=== PATIENT | male | born 1990 | race Caucasian/White ===

== ENCOUNTER 2016-10-19 23:08 | Emergency (ER) | payer OTHER ==
[2016-10-19] MEDS ORDERED: NORCO, ANEXSIA 5/325MG TABLET (HYDROcodone/ACETAMINOPHEN) As Ordered ONE (23:44)
[2016-10-19] MEDS ORDERED: AUGMENTIN 875 MG TAB As Ordered ONE (23:44)
--- NOTE | 2016-10-20 00:11 | EDDOCDS ---
Nurse's Notes [facility] Name: Filemon Lebron Age: 26 yrs Sex: Male : 1990 Arrival Date: 10/19/2016 Time: 23:08 Bed TR7 Private MD: Other - Complete Info On Cds Diagnosis: Dental caries-dental pain Presentation: 10/19 23:27 Presenting complaint: Patient states: Tooth and gum pain for last 2 nights--has taken mcp percocet and naproxen for pain and isn't working. Adult Sepsis Screening: The patient does not have new or worsening altered mentation. Patient's respiratory rate is less than 22. Systolic blood pressure is greater than 100. Patient has a qSOFA score of 0- Negative Sepsis Screen. Suicide/Homicide risk assessment- the patient denies having any suicidal and/or homicidal ideations and does not present with any other emotional, behavioral or mental health complaints. Status: The patient is an active duty swimming pool serviceperson. Transition of care: patient was not received from another setting of care. 23:27 Acuity: RIDDHI Level 4 [facility] 23:27 Method Of Arrival: Walkin/Carried/Asstd [facility] Triage Assessment: 23:29 General: Appears uncomfortable, Behavior is cooperative. Pain: Location: mouth Pain mcp currently is 10 out of 10 on a pain scale. HIV screening NA for this visit Offered previously. Neurological: No deficits noted. Respiratory: Airway is patent Respiratory effort is even, unlabored. Derm: Skin is pink, warm & dry. Historical: - Allergies: no known allergies; - Home Meds: 1. Percocet 5-325 mg Oral tab 1 tab every 6 hours (Last dose: 10/19/2016 21:30) 2. naproxen 500 mg Oral tab 1 tab every 12 hours (Last dose: 10/19/2016 21:30) - PMHx: none; - PSHx: left knee surgery; - Social history: Smoking status: Patient states was never smoker of tobacco. No barriers to communication noted, The patient speaks fluent Serbian. - Family history: Not pertinent. - : The pt / caregiver states he / she is not on anticoagulants. Home medication list is obtained from the patient. - Exposure Risk Screening:: None identified. Screenin/18 00:09 Screening information is obtained from the patient. Fall risk: No risks identified. cz Assistance ADL's: requires no assistance with activities of daily living. Abuse/DV Screen: The patient / caregiver reports he/she is: not in a situation that causes fear, pain or injury. Nutritional screening: No deficits noted. home support is adequate. Assessment: 00:09 General: Appears alert male with stated dental pain. cz Vital Signs: 10/19 23:10 BP 142 / 94; Pulse 71; Resp 18 S; Temp 97.1(O); Pulse Ox 100% on R/A; Weight 84.37 kg gr2 (R); Height 72 in. (182.88 cm) (R); Pain 10/10; 23:10 Body Mass Index 25.23 (84.37 kg, 182.88 cm) gr2 Vitals: 23:10 Log In Time: October 19, 2016 at 23:10. gr2 ED Course: 23:09 Patient visited by Zhanna Hahn. gr2 23:09 Patient moved to Waiting gr2 23:10 Other - Complete Info On Cds is Private Physician. gr2 23:12 Patient visited by Zhanna Hahn. gr2 23:12 Patient moved to Pre RCE gr2 23:28 Triage Initiated [facility] 23:30 Patient visited by Claudette Tinsley RN. [facility] 23:30 [facility] ar[facility] 23:30 Natalio Cabral DO is Attending Physician. ar2 23:30 Patient visited by Reese So PA-C. ar2 23:30 Patient moved to Triage 1 [facility] 23:42 [facility] is Referral Physician. ar2 10/20 00:06 Patient moved to [facility] cz 00:09 The patient / caregiver is instructed regarding the plan of care and ED course. cz 00:09 No IV's were initiated during this patient's visit. No procedures done that require cz assistance. Administered Medications: 10/19 23:45 Drug: Amoxicillin-Clavulanate 1 tabs [amoxicillin 875 mg-potassium clavulanate 125 mg mcp tablet (1 tabs)] Route: PO; 23:45 Drug: HYDROcodone-acetaminophen 1 tabs [hydrocodone 5 mg-acetaminophen 325 mg tablet (1 mcp tabs)] Route: PO; Order Results: There are currently no results for this order. Outcome: 23:43 Discharge ordered by Provider. ar2 10/20 00:09 Discharge Assessment: Patient awake, alert and oriented x 3. No cognitive and/or cz functional deficits noted. Patient verbalized understanding of disposition instructions. patient administered narcotics - no. The following High Risk Discharge criteria are identified: None. Discharged to home ambulatory. Condition: stable. Discharge instructions given to patient, Instructed on discharge instructions, follow up and referral plans. medication usage, Demonstrated understanding of instructions, medications, Pt was receptive of discharge instructions/ teaching. Prescriptions given X 1. No special radiology studies were completed. Property :Personal belongings accompany Pt. 00:10 Patient left the ED. cz Signatures: Claudette Tinsley, RN RN Raj Glaser RN RN Reese Christiansen, SHANELLE TIMMONS ar2 Zhanna Hahn gr2 FIOR
--- NOTE | 2016-10-20 00:11 | EDDOCDS ---
Physician Documentation [facility] Name: Filemon Lebron Age: 26 yrs Sex: Male : 1990 Arrival Date: 10/19/2016 Time: 23:08 Bed TR7 Private MD: Other - Complete Info On Cds Disposition: 10/19/16 23:43 Discharged to Home/Self Care. Impression: Dental caries - dental pain. - Condition is Stable. - Discharge Instructions: Dental Pain. - Prescriptions for Augmentin 875- 125 mg Oral Tablet - take 1 tablet by ORAL route every 12 hours for 10 days; 19 tablet. - Medication Reconciliation, Local Pharmacy Hours form. - Follow up: Vasu Reynoso [facility]; When: 2 - 3 days; Reason: Recheck today's complaints, Continuance of care. Follow up: Emergency Department; Reason: Fever > 102F, Trouble breathing, Worsening of conditions. - Problem is new. - Symptoms are unchanged. Historical: - Allergies: no known allergies; - Home Meds: 1. Percocet 5-325 mg Oral tab 1 tab every 6 hours (Last dose: 10/19/2016 21:30) 2. naproxen 500 mg Oral tab 1 tab every 12 hours (Last dose: 10/19/2016 21:30) - PMHx: none; - PSHx: left knee surgery; - Social history: Smoking status: Patient states was never smoker of tobacco. No barriers to communication noted, The patient speaks fluent Azeri. - Family history: Not pertinent. - : The pt / caregiver states he / she is not on anticoagulants. Home medication list is obtained from the patient. - Exposure Risk Screening:: None identified. Vital Signs: 10/19 23:10 BP 142 / 94; Pulse 71; Resp 18 S; Temp 97.1(O); Pulse Ox 100% on R/A; Weight 84.37 kg / gr2 186 lbs (R); Height 72 in. (182.88 cm) (R); Pain 10/10; 23:10 Body Mass Index 25.23 (84.37 kg, 182.88 cm) gr2 MDM: 23:42 Amoxicillin-Clavulanate 875 mg 1 tabs PO once ordered. ar2 23:42 HYDROcodone-acetaminophen 5 mg-325 mg 1 tabs PO once ordered. ar2 23:49 Financial registration complete. hs2 Administered Medications: 23:45 Drug: Amoxicillin-Clavulanate 1 tabs [amoxicillin 875 mg-potassium clavulanate 125 mg mcp tablet (1 tabs)] Route: PO; 23:45 Drug: HYDROcodone-acetaminophen 1 tabs [hydrocodone 5 mg-acetaminophen 325 mg tablet (1 mcp tabs)] Route: PO; Signatures: Claudette Tinsley RN RN mcp Raj Fisher RN RN cz Robertshaw, Aaron, PA-C PAIsiah ar2 Kamini Delgado, Reg Reg hs2 MTDD
--- NOTE | 2016-10-22 01:11 | EDDOCDS ---
Physician Documentation [facility] Name: Filemon Lebron Age: 26 yrs Sex: Male : 1990 Arrival Date: 10/19/2016 Time: 23:08 Bed TR7 Private MD: Other - Complete Info On Cds Disposition: 10/19/16 23:43 Discharged to Home/Self Care. Impression: Dental caries - dental pain. - Condition is Stable. - Discharge Instructions: Dental Pain. - Prescriptions for Augmentin 875- 125 mg Oral Tablet - take 1 tablet by ORAL route every 12 hours for 10 days; 19 tablet. - Medication Reconciliation, Local Pharmacy Hours form. - Follow up: Vasu Reynoso [facility]; When: 2 - 3 days; Reason: Recheck today's complaints, Continuance of care. Follow up: Emergency Department; Reason: Fever > 102F, Trouble breathing, Worsening of conditions. - Problem is new. - Symptoms are unchanged. Historical: - Allergies: no known allergies; - Home Meds: 1. Percocet 5-325 mg Oral tab 1 tab every 6 hours (Last dose: 10/19/2016 21:30) 2. naproxen 500 mg Oral tab 1 tab every 12 hours (Last dose: 10/19/2016 21:30) - PMHx: none; - PSHx: left knee surgery; - Social history: Smoking status: Patient states was never smoker of tobacco. No barriers to communication noted, The patient speaks fluent Mongolian. - Family history: Not pertinent. - : The pt / caregiver states he / she is not on anticoagulants. Home medication list is obtained from the patient. - Exposure Risk Screening:: None identified. Vital Signs: 10/19 23:10 BP 142 / 94; Pulse 71; Resp 18 S; Temp 97.1(O); Pulse Ox 100% on R/A; Weight 84.37 kg / gr2 186 lbs (R); Height 72 in. (182.88 cm) (R); Pain 10/10; 23:10 Body Mass Index 25.23 (84.37 kg, 182.88 cm) gr2 MDM: 23:42 Amoxicillin-Clavulanate 875 mg 1 tabs PO once ordered. ar2 23:42 HYDROcodone-acetaminophen 5 mg-325 mg 1 tabs PO once ordered. ar2 23:49 Financial registration complete. hs2 10/20 01:41 [facility] Payment Agreement was scanned into [employer] and attached to record. hs2 11:08 T-Sheet-- Draft Copy was scanned into [employer] and attached to record. gb Administered Medications: 10/19 23:45 Drug: Amoxicillin-Clavulanate 1 tabs [amoxicillin 875 mg-potassium clavulanate 125 mg mcp tablet (1 tabs)] Route: PO; 23:45 Drug: HYDROcodone-acetaminophen 1 tabs [hydrocodone 5 mg-acetaminophen 325 mg tablet (1 mcp tabs)] Route: PO; Signatures: Claudette Tinsley RN RN mcp Raj Fisher RN RN cz Jailene Sanchez, Reg Reg gb Reese So PA-C PA-C ar2 Kamini Delgado, Reg Reg hs2 The chart was reviewed and I authenticate all verbal orders and agree with the evaluation and treatment provided.Attachments: 10/20 01:41 [facility] Payment Agreement hs2 11:08 T-Sheet-- Draft Copy gb Chart Complete MTDD
--- NOTE | 2016-10-22 01:11 | EDDOCDS ---
Nurse's Notes [facility] Name: Filemon Lebron Age: 26 yrs Sex: Male : 1990 Arrival Date: 10/19/2016 Time: 23:08 Bed TR7 Private MD: Other - Complete Info On Cds Diagnosis: Dental caries-dental pain Presentation: 10/19 23:27 Presenting complaint: Patient states: Tooth and gum pain for last 2 nights--has taken mcp percocet and naproxen for pain and isn't working. Adult Sepsis Screening: The patient does not have new or worsening altered mentation. Patient's respiratory rate is less than 22. Systolic blood pressure is greater than 100. Patient has a qSOFA score of 0- Negative Sepsis Screen. Suicide/Homicide risk assessment- the patient denies having any suicidal and/or homicidal ideations and does not present with any other emotional, behavioral or mental health complaints. Status: The patient is an active duty caseworker protective services. Transition of care: patient was not received from another setting of care. 23:27 Acuity: RIDDHI Level 4 [facility] 23:27 Method Of Arrival: Walkin/Carried/Asstd [facility] Triage Assessment: 23:29 General: Appears uncomfortable, Behavior is cooperative. Pain: Location: mouth Pain mcp currently is 10 out of 10 on a pain scale. HIV screening NA for this visit Offered previously. Neurological: No deficits noted. Respiratory: Airway is patent Respiratory effort is even, unlabored. Derm: Skin is pink, warm & dry. Historical: - Allergies: no known allergies; - Home Meds: 1. Percocet 5-325 mg Oral tab 1 tab every 6 hours (Last dose: 10/19/2016 21:30) 2. naproxen 500 mg Oral tab 1 tab every 12 hours (Last dose: 10/19/2016 21:30) - PMHx: none; - PSHx: left knee surgery; - Social history: Smoking status: Patient states was never smoker of tobacco. No barriers to communication noted, The patient speaks fluent Tamazight. - Family history: Not pertinent. - : The pt / caregiver states he / she is not on anticoagulants. Home medication list is obtained from the patient. - Exposure Risk Screening:: None identified. Screenin/18 00:09 Screening information is obtained from the patient. Fall risk: No risks identified. cz Assistance ADL's: requires no assistance with activities of daily living. Abuse/DV Screen: The patient / caregiver reports he/she is: not in a situation that causes fear, pain or injury. Nutritional screening: No deficits noted. home support is adequate. Assessment: 00:09 General: Appears alert male with stated dental pain. cz Vital Signs: 10/19 23:10 BP 142 / 94; Pulse 71; Resp 18 S; Temp 97.1(O); Pulse Ox 100% on R/A; Weight 84.37 kg gr2 (R); Height 72 in. (182.88 cm) (R); Pain 10/10; 23:10 Body Mass Index 25.23 (84.37 kg, 182.88 cm) gr2 Vitals: 23:10 Log In Time: October 19, 2016 at 23:10. gr2 ED Course: 23:09 Patient visited by Zhanna Hahn. gr2 23:09 Patient moved to Waiting gr2 23:10 Other - Complete Info On Cds is Private Physician. gr2 23:12 Patient visited by Zhanna Hahn. gr2 23:12 Patient moved to Pre RCE gr2 23:28 Triage Initiated [facility] 23:30 Patient visited by Claudette Tinsley RN. [facility] 23:30 [facility]. ar2 23:30 Natalio Cabral DO is Attending Physician. ar2 23:30 Patient visited by Reese So PA-C. ar2 23:30 Patient moved to Triage 1 [facility] 23:42 [facility] is Referral Physician. ar2 10/20 00:06 Patient moved to [facility] cz 00:09 The patient / caregiver is instructed regarding the plan of care and ED course. cz 00:09 No IV's were initiated during this patient's visit. No procedures done that require cz assistance. 01:41 [facility] Payment Agreement was scanned into [employer] and attached to record. hs2 01:46 Patient name changed from Filemon\S\\S\Riholm\S\ to Filemon\S\ \S\Riholm. EDMS 11:08 T-Sheet-- Draft Copy was scanned into [employer] and attached to record. gb Administered Medications: 10/19 23:45 Drug: Amoxicillin-Clavulanate 1 tabs [amoxicillin 875 mg-potassium clavulanate 125 mg mcp tablet (1 tabs)] Route: PO; 23:45 Drug: HYDROcodone-acetaminophen 1 tabs [hydrocodone 5 mg-acetaminophen 325 mg tablet (1 mcp tabs)] Route: PO; Order Results: There are currently no results for this order. Outcome: 23:43 Discharge ordered by Provider. ar2 10/20 00:09 Discharge Assessment: Patient awake, alert and oriented x 3. No cognitive and/or cz functional deficits noted. Patient verbalized understanding of disposition instructions. patient administered narcotics - no. The following High Risk Discharge criteria are identified: None. Discharged to home ambulatory. Condition: stable. Discharge instructions given to patient, Instructed on discharge instructions, follow up and referral plans. medication usage, Demonstrated understanding of instructions, medications, Pt was receptive of discharge instructions/ teaching. Prescriptions given X 1. No special radiology studies were completed. Property :Personal belongings accompany Pt. 00:10 Patient left the ED. cz Signatures: Dispatcher [employer] EDClaudette Rollins RN RN mcp Zecher, Calvin, RN RN cz Jailene Sanchez, Reg Reg gb Reese So PA-C PA-C ar2 Zhanna Hahn gr2 Kamini Delgado, Reg Reg hs2 Chart Complete MTDD
--- NOTE | 2016-10-22 01:11 | EDDOCDS ---
Physician Documentation [facility] Name: Filemon Lebron Age: 26 yrs Sex: Male : 1990 Arrival Date: 10/19/2016 Time: 23:08 Bed TR7 Private MD: Other - Complete Info On Cds Disposition: 10/19/16 23:43 Discharged to Home/Self Care. Impression: Dental caries - dental pain. - Condition is Stable. - Discharge Instructions: Dental Pain. - Prescriptions for Augmentin 875- 125 mg Oral Tablet - take 1 tablet by ORAL route every 12 hours for 10 days; 19 tablet. - Medication Reconciliation, Local Pharmacy Hours form. - Follow up: Vasu Reynoso [facility]; When: 2 - 3 days; Reason: Recheck today's complaints, Continuance of care. Follow up: Emergency Department; Reason: Fever > 102F, Trouble breathing, Worsening of conditions. - Problem is new. - Symptoms are unchanged. Historical: - Allergies: no known allergies; - Home Meds: 1. Percocet 5-325 mg Oral tab 1 tab every 6 hours (Last dose: 10/19/2016 21:30) 2. naproxen 500 mg Oral tab 1 tab every 12 hours (Last dose: 10/19/2016 21:30) - PMHx: none; - PSHx: left knee surgery; - Social history: Smoking status: Patient states was never smoker of tobacco. No barriers to communication noted, The patient speaks fluent Tamazight. - Family history: Not pertinent. - : The pt / caregiver states he / she is not on anticoagulants. Home medication list is obtained from the patient. - Exposure Risk Screening:: None identified. Vital Signs: 10/19 23:10 BP 142 / 94; Pulse 71; Resp 18 S; Temp 97.1(O); Pulse Ox 100% on R/A; Weight 84.37 kg / gr2 186 lbs (R); Height 72 in. (182.88 cm) (R); Pain 10/10; 23:10 Body Mass Index 25.23 (84.37 kg, 182.88 cm) gr2 MDM: 23:42 Amoxicillin-Clavulanate 875 mg 1 tabs PO once ordered. ar2 23:42 HYDROcodone-acetaminophen 5 mg-325 mg 1 tabs PO once ordered. ar2 23:49 Financial registration complete. hs2 10/20 01:41 [facility] Payment Agreement was scanned into [employer] and attached to record. hs2 11:08 T-Sheet-- Draft Copy was scanned into [employer] and attached to record. gb Administered Medications: 10/19 23:45 Drug: Amoxicillin-Clavulanate 1 tabs [amoxicillin 875 mg-potassium clavulanate 125 mg mcp tablet (1 tabs)] Route: PO; 23:45 Drug: HYDROcodone-acetaminophen 1 tabs [hydrocodone 5 mg-acetaminophen 325 mg tablet (1 mcp tabs)] Route: PO; Signatures: Claudette Tinsley RN RN mcp Raj Fisher RN RN cz Jailene Sanchez, Reg Reg gb Reese So PA-C PA-C ar2 Kamini Delgado, Reg Reg hs2 The chart was reviewed and I authenticate all verbal orders and agree with the evaluation and treatment provided.Attachments: 10/20 01:41 [facility] Payment Agreement hs2 11:08 T-Sheet-- Draft Copy gb Chart Complete MTDD
== END 2016-10-20 00:10 | disposition home or self-care (01) ==
LOC: M ED 23:08
DX: K02.9 Dental caries, unspecified (principal)